=== PATIENT | female | born 1970 | race Caucasian/White ===

== ENCOUNTER 2019-08-13 22:17 | Emergency (ER) | payer MEDICAID ==
[~2019-08-13] VITALS: Ht 162.6 cm; Wt 83.0 kg
[2019-08-13 22:40] VITALS: BP_SYST 144
--- NOTE | 2019-08-13 22:40 | NUR ---
Pt came in to the ER for evaluation: gradual onset, mild shortness of breath associated with nasal congestion x 2 weeks. Pt has been taking Mucinex and Nyquil with no relief of symptoms. On assessment patient c/o pelvic pain associated with dysuria and decrease urine output. She had many similar episodes in the past. Denied any fever, chills, nausea, vomiting, diarrhea or any other complaints today. Patient has history of bladder suspension surgery with urinary tract infection in the past. Denied sick contacts. No associated chest pain. Frankie has been taking OTC Azo for urinary burning since yesterday without relief. Pt made comfortable in bed.
--- NOTE | 2019-08-13 22:40 | NUR ---
Pt ambulatory to bed 6 for evaluation
--- NOTE | 2019-08-13 23:09 | NUR ---
ER at bedside examining patient.
[2019-08-13] MEDS ORDERED: KETOROLAC TROMETHAMINE 30 MG VIAL IM ONE (23:15)
[2019-08-14 00:32] VITALS: BP_SYST 132
--- NOTE | 2019-08-14 00:32 | NUR ---
Patient given written and verbal discharge instructions and verbalizes understanding. ER MD discussed with patient the results and treatment provided. Patient in stable condition. ID arm band removed. Rx of Guaiatussin solution,keflex cap and naprosyn 500 mg cap given. Patient educated on pain management and to follow up with PMD. Pain Scale 0/10. Opportunity for questions provided and answered.
== END 2019-08-14 00:32 | disposition home or self-care (01) ==
LOC: SED 22:17
DX: J20.9 Acute bronchitis, unspecified (principal); N39.0 Urinary tract infection, site not specified; Z90.710 Acquired absence of both cervix and uterus
CPT/HCPCS: 71045; 81002; 81025; 96372; 99283; J1885

== ENCOUNTER 2021-03-05 17:47 | Emergency (ER) | payer MEDICAID ==
[~2021-03-05] VITALS: Ht 162.6 cm; Wt 97.5 kg
[2021-03-05 18:15] VITALS: BP_SYST 118
[2021-03-05] MEDS ORDERED: KETO60CR2 TP (19:16)
[2021-03-05 19:22] VITALS: BP_SYST 122
== END 2021-03-05 19:22 | disposition home or self-care (01) ==
LOC: SED 17:47
DX: L30.9 Dermatitis, unspecified (principal)
CPT/HCPCS: 99283